=== PATIENT | female | born 1950 | race Caucasian/White ===

== ENCOUNTER → 2019-04-02 | Day surgery (SDC) | payer MEDICARE, OTHER ==
[~2019-04-02] MED LIST: Acetaminophen TAB* 325 MG PO PRN; Buffered Lidocaine 1% SYRIN* 1 ML/SYRINGE INTRADERM ONE; Clindamycin 900 MG IVPREMIX(* 900 MG/50 ML SDV IV ONE; DiMENhydriNATE IV* 50 MG/ML VIAL IV PUSH PRN; DiMENhydriNATE IV* 50 MG/ML VIAL ONE; Famotidine TAB* 20 MG ONE; Famotidine TAB* 20 MG PO ONE; Glycopyrrolate IV* 0.2 MG/ML 1 ML VIAL ONE; Ketorolac INJ* 30 MG/ML 1 ML VIAL IV PRN; Ketorolac INJ* 30 MG/ML 1 ML VIAL ONE; Lactated Ringers 1000 ML Bag* 1,000 ML IV SCH; Lidocaine 1% MPF ** 5 ML VIAL ONE; Metoclopramide IV* 5 MG/ML 2 ML VIAL IV SLOW PU ONE; Metoclopramide IV* 5 MG/ML 2 ML VIAL ONE; Midazolam* 1 MG/ML 2 ML VIAL (2 MG) ONE; Naloxone* 0.4 MG/ML 1 ML VIAL IV PRN; Neostigmine Methylsulfate* 3 MG/3 ML SYRINGE ONE; Ondansetron INJ* 2 MG/ML VIAL ONE; Phenylephrine 40 MCG/ML SYRINGE ONE; Propofol* 1,000 MG/100 ML BTL ONE; Propofol* 10 MG/ML 20 ML BTL ONE; ROPIVACAINE 5 MG/ML 30 ML BTL (0.5%) ONE; Rocuronium* 10 MG/ML VIAL ONE; Scopolamine 1.5 mg* PATCH ONE; Sugammadex * 500 MG/5 ML VIAL IV PUSH ONE; fentaNYL* 50 MCG/ML 2 ML VIAL (100 MCG VIAL) ONE; oxyCODONE/Acetamin 5/325 MG* TAB ONE
[2019-04-02] MEDS: fentaNYL* 50 MCG/ML 2 ML VIAL (100 MCG VIAL) IV PRN ×3 (13:32→13:57)
[2019-04-02] MEDS: oxyCODONE/Acetamin 5/325 MG* TAB PO PRN ×2 (13:33→13:35)
[2019-04-02 14:19] VITALS: BP 120/76
--- NOTE | 2019-04-03 20:19 | OP ---
OPERATIVE REPORT: DATE OF OPERATION: 04/02/19 DATE OF : 46 SURGEON: Cedrick Reyes MD PHOTOLETTERING MACHINE OPERATOR: KATERINE Henry A physician assistant professor of mathematics was required for the length of the procedure for assistance with patient positi oning, retraction, instrumentation, and closure. ANESTHESIOLOGIST: Dr. Cedrick He. ANESTHESIA: General anesthesia, regional anesthesia. PRE-OP DIAGNOSIS: Left distal radius fracture, displaced, comminuted. POST-OP DIAGNOSIS: Left distal radius fracture, displaced, comminuted. OPERATIVE PROCEDURE: Open reduction and internal fixation, left distal radius fracture, displaced, c omminuted, intraarticular, 3 or more pieces. ANTIBIOTICS: Clindamycin 900 mg IV. IV FLUIDS: See Anesthesia note. FVJA-MS-APRM TIME: 75 minutes. TOURNIQUET TIME: 77 minutes, left upper arm tourniquet at 250 mmHg. SPECIMENS: None. IMPLANTS: Synthes volar polyaxial distal radius plate, 3-hole, narrow. COMPLICATIONS: None. ESTIMATED BLOOD LOSS: Minimal. INDICATIONS FOR PROCEDURE: The patient is a 69-year-old woman, right-hand dominant, retired, who kaden es in [place] but who is visiting [facility] and a cousin here for at least 1 month, who injured herself on 03/27/19 and saw me on 03/29/19 in clinic. The patient fell on an outstretched hand and I diagnosed her in clinic with a distal radius fracture. The primary fracture plane appeared to be t ransverse extraarticular, but possibly some intraarticular involvement. I measured 25 degrees of daryl sp tilt. The patient also had an ulnar styloid process fracture nondisplaced and on exam she had a s ignificant dinner fork deformity. I placed a cast on the patient in clinic. We discussed nonoperative and operative treatment, pros an d cons, along with risks and potential complications of surgery and [facility]. The patient has multiple medical problems including diabetes mellitus. I had her see a primary care doctor at [facility] last week, who as part of his preoperative workup diagnosed the patient w ith severely decreased potassium to a point such that the patient was actually admitted for potassium repletion overnight before being discharged. The patient was also found to have a very elevated hem oglobin A1c in the range of 8 to 10. I believe it was 9.8, but it may have been 8.9. The primary mo re physician, Dr. Davis, called me. I discussed with the patient afterwards that certainly her aggre ssive smoking history and poorly controlled diabetes put her at high risk of bony nonunion, wound com plication, and infection. The patient decided to still go forward with surgery. Alternatives that I discussed with her include d nonoperative management and an attempt at closed reduction. DESCRIPTION OF PROCEDURE: In preoperative holding, the patient signed a written consent. Operative extremity was marked in preoperative holding. The patient was taken back to the operating room and p laced supine on operating room table. Anesthesia did a regional nerve block while in preoperative holding, it should be noted. The patient was sedated and intubated by Anesthesia in the operating room. An arm table was applied. Tourniquet was placed about the left upper arm. The left upper extremity was prepped and draped. We used Betadine as the patient had a skin tear on the dorsal aspect of her left wrist as well as abo ut the left elbow. Surgical time-out performed. Esmarch applied and tourniquet elevated. Skin incision made. Standard volar approach to the distal radius. 7 cm long. Dissected down to FCR tendon. Retracted that ulnarly. Retracted the FPL tendon ulnarly. Identified pronator quadratus. The pronator quadratus was remarkably intact for a standard distal radius fract ure. That was elevated from the radial aspect of the distal radius, off of the bone. I reduced the fracture visibly at the transverse fracture line, extraarticular. Of note, the patient did have some seeming comminution and intraarticular extension, along the radial border of the fract ure. I picked a narrow plate as most of the fracture was extraarticular and this was a thin woman. I pinn ed the plate in place. I next placed a nonlocking 2.4 mm screw through the oval hole proximally. I adjusted the proximal to distal location of the plate and pinned it with the wrist reduced. I used in C-arm imaging to confirm the appropriateness of reduction and placement of plate. I was happy wi th both after some adjustments. I placed 2 locking screws in the distal most row of the plate. I removed pins. I took more images, which showed excellent reduction and plate placement. I next filled up the other 2 of 3 proximal holes with locking 2.4 mm screws. I exchanged the nonlock ing 2.4 for a nonlocking 2.7 mm screw in the oval hole as is my standard procedure. I filled all of the distal holes of the plate with 2.4 mm locking screws. As the second row of screw holes was proxi mal to the fracture line, I did not fill those holes. Took final images. Excellent reduction. Excellent plate placement. Irrigation. I closed the pronator quadratus to the FCR subsheath using figure-of- eight stitches usi ng Vicryl 2-0 suture. Closure of the subcutaneous tissue with buried simple stitches using Vicryl 3- 0 suture. Closure of the skin with a running stitch using nylon 3-0 suture. Xeroform, 4x4s, sterile Webril over the wrist. We also placed Xeroform on the abrasion about the daryl sp wrist, which was partial thickness skin in depth as well as over the skin tear about the left elb ow. Included 4x4s and sterile Webril over those areas. I next placed both a volar and a dorsal plas ter splint over the wrist and overwrapped with an Oc bandage. The tourniquet was dropped. The patient was awakened and extubated and transferred to the PACU. DISPOSITION: The patient was discharged home when medically stable. She was given Quenemo as needed f or pain control. Bactrim for 7 days for infection prophylaxis given her uncontrolled diabetes and sm oking along with skin tears about the dorsal wrist and elbow. The patient will see me 10 to 14 days postoperatively. We will get x-rays at that clinic visit. Told the patient already that I will like ly add casting for some period of time 2 to 4 weeks after that point just for some additional stabili ty given the patient's uncontrolled diabetes. We have provided the patient with a sling to use as ne eded for left upper extremity elevation. [id number]/[facility] #: [id number]
== END | disposition home or self-care (01) ==
LOC: OR 08:16
PROVIDERS: ATTEND Orthopaedic Surgery
DX: S52.502A Unspecified fracture of the lower end of left radius, initial encounter for closed fracture (principal); I10 Essential (primary) hypertension; E11.9 Type 2 diabetes mellitus without complications; E78.00 Pure hypercholesterolemia, unspecified; Z88.0 Allergy status to penicillin; F17.210 Nicotine dependence, cigarettes, uncomplicated; W10.8XXA Fall (on) (from) other stairs and steps, initial encounter; Y93.01 Activity, walking, marching and hiking; Y92.89 Other specified places as the place of occurrence of the external cause
CPT/HCPCS: 76000; A9270-GY; C1713; C1776; J1240; J1885; J2250; J2405; J2704; J2710; J2765; J2795; J3010